=== PATIENT | male | born 1990 | race Caucasian/White ===

== ENCOUNTER → 2020-04-28 | Outpatient (CLI) | payer OTHER | LOC: M.LAB 15:52 | PROVIDERS: ATTEND Orthopaedic Surgery | DX: Z01.812 Encounter for preprocedural laboratory examination (principal); S83.251D Bucket-handle tear of lateral meniscus, current injury, right knee, subsequent encounter; M25.561 Pain in right knee; X58.XXXD Exposure to other specified factors, subsequent encounter; Z20.822 Contact with and (suspected) exposure to COVID-19 ==